=== PATIENT | female | born 1965 | race Caucasian/White ===

== ENCOUNTER → 2017-03-19 | Outpatient (CLI) | payer BC, OTHER ==
[~2017-03-19] MED LIST: ALPR0.5T5 PO; AMIT10TA PO; ATOR40TA78 PO; FLUO60TA PO; LEVO200T5 PO; LISI1TAB5 PO
[2017-03-19 15:29] LABS: ASPARTATE AMINO TRANSFERASE 20 U/L (15-37); BLOOD UREA NITROGEN 14 mg/dL (7-18)
== END | disposition home or self-care (01) ==
LOC: STAR 14:35
PROVIDERS: ATTEND Surgery
DX: Z01.818 Encounter for other preprocedural examination (principal); C50.411 Malignant neoplasm of upper-outer quadrant of right female breast; I10 Essential (primary) hypertension; E78.00 Pure hypercholesterolemia, unspecified; F32.9 Major depressive disorder, single episode, unspecified; Z87.891 Personal history of nicotine dependence
CPT/HCPCS: 36415; 80053

== ENCOUNTER 2017-03-26 05:51 | Day surgery (SDC) | payer BC, OTHER ==
[~2017-03-26] VITALS: Ht 172.7 cm; Wt 133.2 kg
[2017-03-26] MEDS ORDERED: LACTATED RINGERS 1,000 ML IV SCH (06:34)
[2017-03-26 06:40] VITALS: BP 126/87
[2017-03-26] MEDS ORDERED: BUPIVACAINE/PF 0.5% ONE (07:00)
[2017-03-26] MEDS ORDERED: HEPARIN 1,000 UNITS/ML, 10ML ONE (07:00)
[2017-03-26] MEDS ORDERED: EPINEPHRINE 1 MG/ML, 1ML ONE (07:00)
[2017-03-26 07:11] LABS: HCG UR OBC PASS
[2017-03-26] MEDS ORDERED: MIDAZOLAM 1 MG/ML, 2ML ONE (07:14)
[2017-03-26] MEDS ORDERED: FENTANYL PF 100 MCG/2ML ONE (07:15)
[2017-03-26] MEDS ORDERED: ROCURONIUM 10 MG/ML ONE (07:18)
[2017-03-26] MEDS ORDERED: PROPOFOL 10 MG/ML, 20ML ONE (07:18)
[2017-03-26] MEDS ORDERED: CEFAZOLIN 1,000 MG ONE (07:18)
[2017-03-26] MEDS ORDERED: DEXAMETHASONE 4 MG/ML, 1ML ONE (07:18)
[2017-03-26] MEDS ORDERED: ONDANSETRON 2MG/ML, 2ML ONE (07:18)
[2017-03-26] MEDS ORDERED: SUCCINYLCHOLINE 20 MG/ML, 10ML ONE (07:18)
[2017-03-26] MEDS ORDERED: LABETALOL 5MG/ML, 20ML IV PRN (07:30)
[2017-03-26] MEDS ORDERED: HYDROcodone/APAP 7.5-325MG/15ML UDC PO PRN (07:30)
[2017-03-26] MEDS ORDERED: ALBUTEROL SULFATE 2.5 MG/3 ML NPPB PRN (07:30)
[2017-03-26] MEDS ORDERED: ACETAMINOPHEN 325 MG TABLET PO PRN (07:30)
[2017-03-26] MEDS ORDERED: KETOROLAC 30 MG/1 ML IV PRN (07:30)
[2017-03-26] MEDS ORDERED: EPHEDRINE 50 MG/ML, 1ML IVPush PRN (07:30)
[2017-03-26] MEDS ORDERED: hydrALAzine 20 MG/ML, 1ML IV PRN (07:30)
[2017-03-26] MEDS ORDERED: METOPROLOL 1 MG/ML, 5ML IV PRN (07:30)
[2017-03-26] MEDS ORDERED: OXYcodone 5 MG/5 ML ORAL.SOL UDC PO PRN (07:30)
[2017-03-26] MEDS ORDERED: HYDROmorphone 1 MG/ML, 1ML IV PRN (07:30)
[2017-03-26] MEDS ORDERED: ONDANSETRON 2MG/ML, 2ML IVPush PRN (07:30)
[2017-03-26] MEDS ORDERED: FENTANYL PF 100 MCG/2ML IV PRN (07:30)
[2017-03-26] MEDS ORDERED: HYDROcodone/APAP 7.5-325MG/15ML UDC ONE (08:41)
[2017-03-26] MEDS ORDERED: KETOROLAC 30 MG/1 ML ONE (08:41)
== END 2017-03-26 11:05 ==
LOC: OUT 05:51
PROVIDERS: ATTEND Surgery
DX: Z45.2 Encounter for adjustment and management of vascular access device (principal); C50.911 Malignant neoplasm of unspecified site of right female breast; F32.9 Major depressive disorder, single episode, unspecified; E78.00 Pure hypercholesterolemia, unspecified; I10 Essential (primary) hypertension; E89.0 Postprocedural hypothyroidism; F17.210 Nicotine dependence, cigarettes, uncomplicated; Z98.51 Tubal ligation status; Z72.89 Other problems related to lifestyle
CPT/HCPCS: 36561; 71010; 77001; 81025; C1788; J0171; J0330; J0690; J1100; J1644; J1885; J2250; J2405; J2704; J3010; J3490; J7120